=== PATIENT | male | born 1980 | race Caucasian/White ===

== ENCOUNTER 2018-08-20 10:59 | Day surgery (SDC) | payer MEDICARE, MEDICAID ==
[2018-08-20] MEDS ORDERED: LACTATED RINGERS 1,000 ML IV ONE (11:32)
[2018-08-20] MEDS ORDERED: MIDAZOLAM 2 MG/2 ML VIAL IVP ONE (12:29)
[2018-08-20] MEDS ORDERED: fentaNYL 250 MCG/5 ML VIAL IVP ONE (12:29)
[2018-08-20 13:12] VITALS: BP 110/80
== END 2018-08-20 11:00 | disposition home or self-care (01) ==
LOC: SDS 10:59
PROVIDERS: ATTEND Internal Medicine
PROC: 0DJ08ZZ Inspection of Upper Intestinal Tract, Via Natural or Artificial Opening Endoscopic (ICD-10-PCS; principal; 2018-08-20 12:00)
DX: K21.0 Gastro-esophageal reflux disease with esophagitis (principal); K44.9 Diaphragmatic hernia without obstruction or gangrene
CPT/HCPCS: 43235; J7120